=== PATIENT | male | born 1965 | race Caucasian/White ===

== ENCOUNTER 2018-03-28 08:40 | Day surgery (SDC) | payer OTHER ==
[2018-03-28] MEDS ORDERED: Morphine VIAL* 4 MG/ML VIAL (1 ml vial) IV ONE (09:45)
[2018-03-28] MEDS ORDERED: Ondansetron INJ* 2 MG/ML VIAL IV ONE (09:45)
[2018-03-28] MEDS ORDERED: Morphine VIAL* 10 MG/ML 1 ML VIAL ONE (09:55)
[2018-03-28 10:03] LABS: ABS Basophils 0.1 10^3/ul (0-0.2); ABS Eosinophils 0 10^3/ul (0-0.6); ABS Lymphocytes 1.3 10^3/ul (1.0-4.8); ABS Monocytes 1.2 10^3/ul (0-0.8); ABS Neutrophils 9.9 10^3/ul (1.5-7.7); ABS Nucleated RBC 0 10^3/ul; Eosinophil % 0.1 %; Hematocrit 46 % (42-52); Hemoglobin 15.9 g/dl (14.0-18.0); Lymphocyte % 10.4 %; Mean Corpuscular HGB Conc 35 g/dl (31-36); Mean Corpuscular Hemoglobin 30 pg (27-31); Mean Corpuscular Volume 87 fL (80-94); Mean Platelet Volume 8.7 fL (7.4-10.4); Nucleated Red Blood Cells % 0; Platelet Count 195 10^3/ul (150-450); Red Blood Count 5.28 10^6/ul (4.00-5.40); Red Cell Distribution Width 14 % (10.5-15); White Blood Count 12.5 10^3/ul (3.5-10.8)
[2018-03-28] MEDS ORDERED: Morphine VIAL* 10 MG/ML 1 ML VIAL IV ONE (10:05)
[2018-03-28 10:22] LABS: Albumin 4.4 g/dL (3.2-5.2); Albumin/Globulin Ratio 1.6 (1-3); BUN/Creatinine Ratio 18.8 (8-20); C Reactive Protein 19.11 mg/L (<8.01); Calcium 9.8 mg/dL (8.6-10.3); EGFR African American 98.8 (>60); EGFR Non-African American 81.6 (>60); Globulin 2.8 g/dL (2-4); Magnesium 1.9 mg/dL (1.9-2.7); Potassium 3.5 mmol/L (3.5-5.0); Total Protein 7.2 g/dL (6.4-8.9)
--- NOTE | 2018-03-28 11:52 | ED ---
Abdominal Pain/Male - HPI Summary HPI Summary: She is a 53-year-old male with a history of hypertension presenting to the ED with RUQ pain 30 hours with associated nausea and vomiting. He states he was able to eat some soup yesterday, however has not been able to keep anything down otherwise. Patient states this is acute onset 30 hours ago and this is been continuous. Associated with nausea and vomiting just as of last night. Last by mouth intake was last evening when he was able to keep down some soup. Significant family history of cholecystitis, cholelithiasis with cholecystectomy. He's been taking Tylenol at home without relief. Pain is not alleviated or aggravated by positioning, medications or rest. - History of Current Complaint Chief Complaint: EDAbdPain Stated Complaint: ABD PAIN Time Seen by Provider: 03/28/18 09:25 Hx Obtained From: Patient Onset/Duration: Sudden Onset Timing: Intermittent Severity Initially: Moderate Severity Currently: Moderate Pain Intensity: 7 Pain Scale Used: 0-10 Numeric Location: Discrete At: RUQ Radiates: No Character: Sharp, Dull, Cramping Aggravating Factor(s): Nothing Alleviating Factor(s): Nothing Associated Signs And Symptoms: Positive: Decreased Appetite, Nausea, Vomiting. Negative: Diaphoresis, Fever, Cough, Chest Pain, Constipation, Blood in Stool, Urinary Symptoms, Diarrhea - Risk Factors Testicular Torsion: Negative Cardiac Risk Factors: Negative - Allergies/Home Medications Allergies/Adverse Reactions: Allergies Allergy/AdvReac Type Severity Reaction Status Date / Time No Known Allergies Allergy Verified 03/28/18 08:50 Home Medications: Home Medications Chlorthalidone TAB* [Hygroton TAB*] 12.5 mg PO DAILY 03/28/18 [History Confirmed 03/28/18] Fluticasone-Salmeterol 100-50* [Advair Diskus 100-50*] 1 puff INH BID 03/28/18 [ History Confirmed 03/28/18] Lisinopril TAB* [Prinivil TAB*] 40 mg PO DAILY 03/28/18 [History Confirmed 03/28] Tamsulosin CAP* [Flomax CAP*] 0.4 mg PO DAILY 03/28/18 [History Confirmed ] Terbinafine HCl 250 mg PO DAILY 03/28/18 [History Confirmed 03/28/18] amLODIPine TAB* [Norvasc 5 mg TAB*] 10 mg PO DAILY 03/28/18 [History Confirmed 03/28/18] PMH/Surg Hx/FS Hx/Imm Hx Previously Healthy: Yes - Immunization History Hx Pertussis Vaccination: No Immunizations Up to Date: Yes Infectious Disease History: No Infectious Disease History: Denies: Traveled Outside the [place] in Last 30 Days - Social History Occupation: Employed Full-time Lives: With Family Alcohol Use: Weekly Alcohol Amount: 1-2 beers Hx Substance Use: No Substance Use Type: Reports: None Hx Tobacco Use: No Smoking Status (MU): Never Smoked Tobacco Review of Systems Negative: Fever, Chills, Fatigue, Skin Diaphoresis Negative: Photophobia, Blurred Vision Negative: Palpitations, Chest Pain Negative: Shortness Of Breath, Cough Positive: Abdominal Pain - right upper quadrant pain, Vomiting, Nausea. Negative: Diarrhea Genitourinary: Negative Positive: no symptoms reported, see HPI Negative: Arthralgia, Myalgia Neurological: Negative All Other Systems Reviewed And Are Negative: Yes Physical Exam Triage Information Reviewed: Yes Vital Signs On Initial Exam: Initial Vitals Temp Pulse Resp BP Pulse Ox 97.9 F 85 16 140/95 99 03/28/18 08:47 03/28/18 08:47 03/28/18 08:47 03/28/18 08:47 03/28/18 08:47 Vital Signs Reviewed: Yes Appearance: Positive: Well-Appearing, Well-Nourished Skin: Positive: Warm, Skin Color Reflects Adequate Perfusion Head/Face: Positive: Normal Head/Face Inspection Eyes: Positive: EOMI, VILMA, Conjunctiva Clear Neck: Positive: Supple Respiratory/Lung Sounds: Positive: Clear to Auscultation, Breath Sounds Present Cardiovascular: Positive: RRR, Pulses are Symmetrical in both Upper and Lower Extremities Abdomen Description: Positive: Soft, Other: - Right upper quadrant pain, positive Russo sign, negative Rovsing sign, no tenderness at McBurney's point, no epigastric tenderness no tenderness over CVA bilaterally Bowel Sounds: Positive: Present Musculoskeletal: Positive: Normal, Strength/ROM Intact Neurological: Positive: Sensory/Motor Intact, Alert, Oriented to Person Place, Time Psychiatric: Positive: Normal, Affect/Mood Appropriate Diagnostics - Vital Signs Vital Signs Temp Pulse Resp BP Pulse Ox 03/28/18 11:39 86 124/76 100 03/28/18 11:08 81 118/79 100 03/28/18 11:01 93 116/84 96 03/28/18 11:00 84 100 03/28/18 10:08 20 03/28/18 10:00 81 100 03/28/18 09:38 77 155/98 99 03/28/18 09:21 87 100 03/28/18 08:47 97.9 F 85 16 140/95 99 - Laboratory Lab Results: Lab Results 03/28/18 03/28/18 03/28/18 Range/Units 09:02 09:02 09:02 WBC 12.5 H (3.5-10.8) 10^3/ul RBC 5.28 (4.00-5.40) 10^6/ul Hgb 15.9 (14.0-18.0) g/dl Hct 46 (42-52) % MCV 87 (80-94) fL MCH 30 (27-31) pg MCHC 35 (31-36) g/dl RDW 14 (10.5-15) % Plt Count 195 (150-450) 10^3/ul MPV 8.7 (7.4-10.4) fL Neut % (Auto) 79.3 % Lymph % (Auto) 10.4 % Foster % (Auto) 9.8 % Eos % (Auto) 0.1 % Baso % (Auto) 0.4 % Absolute Neuts (auto) 9.9 H (1.5-7.7) 10^3/ul Absolute Lymphs (auto) 1.3 (1.0-4.8) 10^3/ul Absolute Monos (auto) 1.2 H (0-0.8) 10^3/ul Absolute Eos (auto) 0 (0-0.6) 10^3/ul Absolute Basos (auto) 0.1 (0-0.2) 10^3/ul Absolute Nucleated RBC 0 10^3/ul Nucleated RBC % 0 Sodium 137 (135-145) mmol/L Potassium 3.5 (3.5-5.0) mmol/L Chloride 102 (101-111) mmol/L Carbon Dioxide 28 (22-32) mmol/L Anion Gap 7 (2-11) mmol/L BUN 18 (6-24) mg/dL Creatinine 0.96 (0.67-1.17) mg/dL Est GFR ( Amer) 98.8 (>60) Est GFR (Non-Af Amer) 81.6 (>60) BUN/Creatinine Ratio 18.8 (8-20) Glucose 117 H (70-100) mg/dL Lactic Acid 1.1 (0.5-2.0) mmol/L Calcium 9.8 (8.6-10.3) mg/dL Magnesium 1.9 (1.9-2.7) mg/dL Total Bilirubin 1.00 (0.2-1.0) mg/dL AST 22 (13-39) U/L ALT 31 (7-52) U/L Alkaline Phosphatase 72 (34-104) U/L C-Reactive Protein 19.11 H (<8.01) mg/L Total Protein 7.2 (6.4-8.9) g/dL Albumin 4.4 (3.2-5.2) g/dL Globulin 2.8 (2-4) g/dL Albumin/Globulin Ratio 1.6 (1-3) Amylase 62 (29-103) U/L Lipase 14 (11.0-82.0) U/L Result Diagrams: 03/28/18 09:02 03/28/18 09:02 Lab Statement: Any lab studies that have been ordered have been reviewed, and results considered in the medical decision making process. Abdominal Pain Fem Course/Dx - Course Course Of Treatment: During the course of treatment, the patient is evaluated for RUQ pain. History of hypertension. Pain is been present 30 hours. Associated with nausea and vomiting. Denies any urinary symptoms, back pain, diarrhea or constipation. Patient states he is otherwise healthy and has never had this pain in the past. Symptoms are not aggravated or alleviated with food intake or rest. Denies any fevers, sweats, chills. Obtained a ultrasound of the gallbladder which shows multiple stones, cholelithiasis with possible cholecystitis. White count slightly elevated at 12.5, liver enzymes normal, bilirubin 1.0. Discussed case with Dr. Montiel who agrees to consult with the patient. EKG obtained. After consult, patient is stable for OR. During the course of treatment, he was given morphine and Zofran with minimal relief. Continues to be achy in the RUQ. - Diagnoses Provider Diagnoses: Cholelithiasis and cholecystitis without obstruction - Provider Notifications Discussed Care Of Patient With: Mario Montiel Instructed by Provider To: MD Will See In ED Discharge - Sign-Out/Discharge Documenting (check all that apply): Patient Departure - Discharge Plan Condition: Good Disposition: ADMITTED TO [facility] Referrals: Chanell Worrell MD [Primary Care Provider] - - Billing Disposition and Condition Condition: GOOD Disposition: Admitted to [facility]
[2018-03-28] MEDS ORDERED: Lactated Ringers 1000 ML Bag* 1,000 ML IV SCH ×2 (12:00→13:00)
[2018-03-28] MEDS ORDERED: Dexamethasone IV* 4 MG/ML 1 ML (4 MG) IV SLOW PU ONE (13:00)
[2018-03-28] MEDS ORDERED: Famotidine IV* 10 MG/ML 2 ML (20 mg) IV ONE (13:00)
[2018-03-28] MEDS ORDERED: Buffered Lidocaine 1% SYRIN* 1 ML/SYRINGE INTRADERM ONE (13:00)
[2018-03-28 14:36] LABS: Urine Appearance Clear; Urine Bilirubin Negative (Negative); Urine Blood Negative (Negative); Urine Color Yellow; Urine Glucose Negative (Negative); Urine Ketones Negative (Negative); Urine Nitrite Negative (Negative); Urine Protein Negative (Negative); Urine Urobilinogen Positive (Negative)
[2018-03-28] MEDS ORDERED: Dexamethasone IV* 4 MG/ML 1 ML (4 MG) ONE ×2 (15:34→19:23)
[2018-03-28] MEDS ORDERED: Famotidine IV* 10 MG/ML 2 ML (20 mg) ONE (15:34)
[2018-03-28] MEDS ORDERED: ceFAZolin 2 GM PREMIX in ORs 2 GM/50 ML BAG IVPB ONE (18:14)
[2018-03-28] MEDS ORDERED: fentaNYL* 50 MCG/ML 2 ML VIAL (100 MCG VIAL) ONE (19:23)
[2018-03-28] MEDS ORDERED: Propofol* 10 MG/ML 20 ML BTL ONE (19:23)
[2018-03-28] MEDS ORDERED: Lidocaine 2% PF * 5 ML VIAL ONE (19:23)
[2018-03-28] MEDS ORDERED: Ondansetron INJ* 2 MG/ML VIAL ONE (19:23)
[2018-03-28] MEDS ORDERED: Cisatracurium* 2 MG/ML MDV 5 ML ONE (19:23)
[2018-03-28] MEDS ORDERED: Midazolam* 1 MG/ML 5 ML VIAL (5 MG) ONE (19:24)
[2018-03-28] MEDS ORDERED: Bupivacaine 0.5% W/EPI SDV* 30 ML VIAL ONE (19:28)
[2018-03-28] MEDS ORDERED: Phenylephrine IV* 40 MCG/ML 10 ML SYRINGE ONE (20:06)
[2018-03-28] MEDS ORDERED: Glycopyrrolate IV* 0.2 MG/ML 1 ML VIAL ONE (20:29)
[2018-03-28] MEDS ORDERED: Neostigmine Methylsulfate* 1 MG/ML 10 ML VIAL (1 mg/ml) ONE (20:29)
--- NOTE | 2018-03-28 20:40 | BRIEFOPN ---
Brief Operative Note - Surgery Procedures: Pre-OP Diagnoses: acute cholecystitis Post-op Diagnosis: same Procedure: Laparoscopic cholecystectomy Surgeon: Dinesh Asst: Jimmy Anethesia: YUSEF EBL: minimal IVF: 1500ccLR Specimen: gallbladder Drains: none
--- NOTE | 2018-03-28 20:44 | CONS ---
CONSULTATION REPORT: DATE OF CONSULT: 03/28/18 CHIEF COMPLAINT: Abdominal pain and gallstones. HISTORY OF PRESENT ILLNESS: This is a pleasant 53-year-old gentleman who presented to the emergency room with about a 38-hour history of right upper quadrant pain associated with nausea and vomiting. No jaundice, acholic stools or dark urine. He has never had pain like this before. Pain severity is 7/10, unrelenting. PAST MEDICAL HISTORY: Hypertension, BPH, asthma. PAST SURGICAL HISTORY: No prior surgery. MEDICATIONS: 1. Chlorthalidone 12.5 mg p.o. daily. 2. Fluticasone and salmeterol 100/50. 3. Lisinopril 40 mg. 4. Tamsulosin 0.4. 5. Terbinafine 250 mg. 6. Amlodipine 10 mg. ALLERGIES: No known drug allergies. FAMILY HISTORY: Denies cardiac history. REVIEW OF SYSTEMS: Full review of systems performed, 11-point, positive review of systems that are pertinent or are in the history of present illness. DIAGNOSTIC STUDIES/LAB DATA: Laboratory studies showed an elevated white blood cell count of 12.5. BUN and creatinine are normal. LFTs are normal. C- reactive protein is elevated 19.11. Radiologic studies show gallstones concerning for cholecystitis. IMPRESSION: Cholecystitis. PLAN/RECOMMENDATIONS: We discussed treatment options, surgical versus nonsurgical with antibiotics. We discussed surgery with its risks included, but not limited to bleeding, infection, injury to intra-abdominal contents including the bowel, bile ducts, liver, and other intra-abdominal contents, AR, pneumonia, PE, arrhythmia, even explained to the patient. He would like to proceed with surgery and all questions were answered. [id number]/[facility] #: [id number] MTDD
[2018-03-28] MEDS ORDERED: Ondansetron INJ* 2 MG/ML VIAL IV PRN (21:04)
[2018-03-28] MEDS ORDERED: fentaNYL* 50 MCG/ML 2 ML VIAL (100 MCG VIAL) IV PRN (21:04)
[2018-03-28] MEDS ORDERED: Naloxone* 0.4 MG/ML 1 ML VIAL IV PRN (21:04)
[2018-03-28] MEDS ORDERED: oxyCODONE/Acetamin 5/325 MG* TAB PO PRN (21:04)
[2018-03-28] MEDS ORDERED: oxyCODONE/Acetamin 5/325 MG* TAB ONE (21:47)
[2018-03-28 22:06] VITALS: BP 124/75
--- NOTE | 2018-03-29 13:25 | OP ---
DICTATION ENDS ABRUPTLY CC: Dr. Chanell Worerll * DATE OF OPERATION: 03/28/18 - [facility] DATE OF : 63 SURGEON: Mario Montiel MD. SCALE RECLAMATION TENDER: OBEY White. ANESTHESIOLOGIST: Dr. Lindsay. ANESTHESIA: General anesthesia. PRE-OP DIAGNOSIS: Acute cholecystitis. POST-OP DIAGNOSIS: Acute cholecystitis. OPERATIVE PROCEDURE: Laparoscopic cholecystectomy. ESTIMATED BLOOD LOSS: Minimal. FLUIDS: 1500 cc crystalloid fluid given. SPECIMEN: Gallbladder. DESCRIPTION OF PROCEDURE: The patient was identified in the preoperative area. I discussed the case with him. I went over the risks, benefits, and alternatives given the diagnosis of a laparoscopic cholecystectomy. We discussed the possible complications which included but not limited to bleeding , infection, bile leak, common bile duct or bowel injury, need for additional procedures, need for open procedure, retained common bile duct stones. The patient agreed and signed consent. He was marked, brought to the operating room , placing on the operating table in the supine position. Preoperative antibiotics given. Sequential devices placed on the bilateral lower extremities. General anesthesia was induced. The patient's abdomen was clipped of hair and prepped and draped in standard surgical fashion. Time-out was performed. Folds of the umbilicus were elevated anterior and a Veress needle inserted into the abdominal cavity, which was then inflated to a pressure of 15 mmHg. The patient tolerated the insufflation well. A periumbilical incision was made and a 12 mm trocar was inserted. Laparoscope was inserted through this and there was no evidence of injury from the trocar insertion over the Veress needle, which was then removed. Additional trocars were then placed in the following position: A 12-mm in subxiphoid area and two 5-mm along the right costal margin. Review of the abdomen showed an inflamed gallbladder. Omentum was easily peeled away from it and the fundus of the gallbladder was grasped. We promptly broke through the gallbladder and bile was spilled. This did allow us to grasp the fundus and retracted over the liver. Infundibular region was retracted to the RIGHT lower quadrant and critical view was noted. Peritoneum off the lateral aspect of the gallbladder and the medial aspect of the gallbladder were taken with electrocautery. Cystic duct was isolated. Cystic artery and then light isolated as well and was doubly clipped and ligated. Prior to clipping the cystic duct we dissected further along the body posteriorly. The duct was then doubly clipped and ligated and the gallbladder was removed from the liver bed. He was placed in endoscopic retrieval bag and placed over the liver. Next , we irrigated copiously at the gallbladder fossa. But the cautery was used for hemostasis on liver edge. Cystic duct stump and cystic artery stump were identified showed no evidence of bleeding or bile leakage. The irrigant was removed. Next, the gallbladder was removed in its endoscopic retrieval bag through the subxiphoid port site. this did require any incision more. Specimen was removed and passed off. We then closed the fascia at the subxiphoid site with an 0 Vicryl stitch. The abdomen was allowed to collapse and trochars removed under direct vision. All skin incisions were reapproximated with 4-0 Monocryl followed by Steri-Strips and sterile dressing. Patient tolerated procedure well and was transferred to the PACU in stable condition. [id number]/[facility] #: [id number] MTDD
== END 2018-03-28 22:05 | disposition home or self-care (01) ==
LOC: ED 08:40 → OR 15:22
PROVIDERS: ATTEND Surgery
DX: K81.0 Acute cholecystitis (principal); R10.11 Right upper quadrant pain; R11.2 Nausea with vomiting, unspecified; I10 Essential (primary) hypertension; J45.909 Unspecified asthma, uncomplicated
CPT/HCPCS: 36415; 76705; 80053; 81003; 82150; 83605; 83690; 83735; 85025; 86140; 88304; 93005; 99285; A9270-GY; J0690; J1100; J2250; J2270; J2405; J2704; J2710; J3010